=== PATIENT | female | born 1950 | race Caucasian/White ===

== ENCOUNTER 2024-01-08 10:39 | Outpatient (RCR) | payer OTHER, SELFPAY | END 2024-01-08 23:59 | disposition home or self-care (01) | LOC: RPT 10:39 | PROVIDERS: ATTENDING PHYSICIAN Obstetrics & Gynecology; FAMILY PHYSICIAN Family Medicine | DX: N39.41 Urge incontinence (principal); Z73.6 Limitation of activities due to disability | CPT/HCPCS: 97161; 97530 ==

== ENCOUNTER 2024-02-13 06:34 | Outpatient (RCR) | payer OTHER, SELFPAY | END 2024-02-13 23:59 | disposition home or self-care (01) | LOC: RPT 06:34 | PROVIDERS: ATTENDING PHYSICIAN Obstetrics & Gynecology; FAMILY PHYSICIAN Family Medicine | DX: N39.41 Urge incontinence (principal); Z73.6 Limitation of activities due to disability; R35.0 Frequency of micturition | CPT/HCPCS: 97110; 97112; 97530 ==

== ENCOUNTER → 2024-03-07 14:04 | Outpatient (REF) | payer OTHER, SELFPAY | LOC: HWRAD 14:04 | PROVIDERS: ATTENDING PHYSICIAN Internal Medicine; FAMILY PHYSICIAN Family Medicine | DX: R10.13 Epigastric pain (principal) | CPT/HCPCS: 74176 ==

== ENCOUNTER 2024-03-12 13:12 | Outpatient (RCR) | payer OTHER, SELFPAY | END 2024-03-12 23:59 | disposition home or self-care (01) | LOC: RPT 13:12 | PROVIDERS: ATTENDING PHYSICIAN Obstetrics & Gynecology; FAMILY PHYSICIAN Family Medicine | DX: N39.41 Urge incontinence (principal); Z73.6 Limitation of activities due to disability; R35.0 Frequency of micturition | CPT/HCPCS: 97110; 97112 ==

== ENCOUNTER 2024-03-24 14:25 | Outpatient (RCR) | payer OTHER, SELFPAY | END 2024-04-15 07:09 | disposition home or self-care (01) | LOC: RPT 14:25 | PROVIDERS: ATTENDING PHYSICIAN Obstetrics & Gynecology; FAMILY PHYSICIAN Family Medicine | DX: N39.41 Urge incontinence (principal); Z73.6 Limitation of activities due to disability; R35.0 Frequency of micturition | CPT/HCPCS: 97110 ==

== ENCOUNTER 2024-04-03 06:42 | Day surgery (SDC) | payer OTHER, SELFPAY ==
[2024-03-25 10:31] VITALS: BMI 39.7
[2024-03-25 10:38] LABS: Hematocrit 36.1 % (37.0-47.0); Hemoglobin 11.3 g/dL (12.0-16.0); Mean Corp Hgb Conc. 31.3 g/dL (33.0-37.0); Mean Corpuscular Hgb 25.5 pg (27.0-31.0); Mean Corpuscular Volume 81.3 fL (81.0-99.0); Mean Platelet Volume 9.6 fL (7.4-10.4); Platelet Count 245 10^3/uL (130-400); Red Blood Cell Count 4.44 10^6/uL (4.20-5.40); Red Cell Dist. Width 17.4 % (11.5-14.5); White Blood Cell Count 9.6 10^3/uL (4.8-10.8)
[2024-03-25 11:03] LABS: Blood Urea Nitrogen 10 mg/dl (7-17); Calcium 9.7 mg/dl (8.4-10.2); Carbon Dioxide 29 mmol/L (22-30); Chloride 105 mmol/L (98-107); Estimated Creatinine Clearance 106 ml/min; Glucose 117 mg/dl (70-99); Potassium 4.4 mmol/L (3.5-5.1); Sodium 144 mmol/L (135-145); eGFR > 60.00
--- NOTE | 2024-03-25 13:42 | PTCARENOTE ---
Abnormal preop EKG reviewed by Dr. Baldwin. No further action requested.
[2024-04-03] VITALS (9 sets, daily range): BP systolic 109–159; BP diastolic 67–81; BMI 39.7
[2024-04-03] MEDS: CYSVIEW KIT 100 MG INTRAVES (09:35)
[2024-04-03] MEDS: NORMOSOL-R/PLASMALYTE-A 1000 IV (09:45)
[2024-04-03 10:03] LABS: Glucose - Point of Care 94 mg/dl (70-99)
[2024-04-03 12:45] LABS: Glucose - Point of Care 102 mg/dl (70-99)
== END 2024-04-03 14:02 | disposition home or self-care (01) ==
LOC: SDS 06:42
PROVIDERS: ATTENDING PHYSICIAN Specialist; FAMILY PHYSICIAN Family Medicine; OTHER PHYSICIAN Internal Medicine Cardiovascular Disease
DX: C79.11 Secondary malignant neoplasm of bladder (principal); C50.919 Malignant neoplasm of unspecified site of unspecified female breast; N13.30 Unspecified hydronephrosis; Z17.0 Estrogen receptor positive status [ER+]
CPT/HCPCS: 52240; C9738; 88307; 88332; 36415; 80048; 82962; 85027; 88331; 88341; 88342; 88360; 93005; A9589; C2617; J1580

== ENCOUNTER 2024-04-07 22:51 | Inpatient (IN) | payer OTHER, SELFPAY ==
[2024-04-07] VITALS (14 sets, daily range): BP systolic 90–126; BP diastolic 44–65; PULSE 75–76; BMI 37.2
[2024-04-07 15:33] LABS: Hematocrit 36.3 % (37.0-47.0); Hemoglobin 11.6 g/dL (12.0-16.0); Mean Corpuscular Hgb 25.2 pg (27.0-31.0); Mean Corpuscular Volume 78.7 fL (81.0-99.0); Mean Platelet Volume 9.1 fL (7.4-10.4); Platelet Count 187 10^3/uL (130-400); Red Blood Cell Count 4.61 10^6/uL (4.20-5.40); Red Cell Dist. Width 17.2 % (11.5-14.5); White Blood Cell Count 3.8 10^3/uL (4.8-10.8)
[2024-04-07 15:34] LABS: ALT (SGPT) 26 U/L (0-35); AST (SGOT) 64 U/L (14-36); Albumin 4.2 g/dl (3.5-5.0); Alkaline Phosphatase 182 U/L (38-126); Blood Urea Nitrogen 16 mg/dl (7-17); Calcium 9.5 mg/dl (8.4-10.2); Carbon Dioxide 21 mmol/L (22-30); Chloride 105 mmol/L (98-107); Glucose 144 mg/dl (70-99); Lactic Acid 3.7 mmol/L (0.7-2.0); Potassium 3.5 mmol/L (3.5-5.1); Sodium 137 mmol/L (135-145); Total Bilirubin 1.1 mg/dl (0.2-1.3); Total Protein 7.3 g/dl (6.3-8.2); eGFR > 60.00
[2024-04-07] MEDS: NSS 1000 IV ×2 (16:33→20:25)
[2024-04-07] MEDS: MORPHINE SULFATE 4 MG IV ×2 (16:33→21:03)
[2024-04-07] MEDS: TYLENOL 1000 MG PO (16:33)
[2024-04-07 16:34] LABS: Absolute Neutrophils -Man Diff 3.1 10^3/uL (1.4-6.5); Band Neutrophils 5 % (0-3); Eosinophils 1 % (0-6); Lymphocytes 13 % (20-51); Monocytes 2 % (2-9); Normal RBC Morphology Yes; Platelets Checked Yes; Segmented Neutrophils 79 % (42-75); Total Cells Counted 100
--- NOTE | 2024-04-07 16:40 | ED.GENMED ---
History of Present Illness
General
Chief Complaint: Abdominal Symptoms
Time Seen by Provider: 04/07/24 16:10
History of Present Illness
History of Present Illness:
73-year-old female with history of bladder cancer and diabetes presenting to the emergency department for increasing pain. Patient is status post bladder mass resection and ureteral stent placement on the right side for hydronephrosis on 04/03 by
urology. Upon discharge from the hospital, has had increasing lower abdominal pain and now dysuria. Patient also with vomiting. She called her urologist, was sent medication for pain and Azo. She was also send an antibiotic, however has not
started it. Reports chills. Denies chest pain or difficulty breathing. Has had some constipation, however had a bowel movement this morning. Denies additional acute medical complaints
Past History
Past History
ED Past Medical History: Asthma, GERD, HTN, IDDM, Other (Migraines) and Other (Neck pain)
ED Past Surgical History: Cholecystectomy, Gynecological (Hysterectomy), Orthopedic (Left total knee replacement) and Other (I lift, squamous cell skin cancer removal)
Social History
Tobacco: Non-smoker
Alcohol: None
Drug: None
Living: with family
Employment: Retired
Phy Exam
Physical Exam
Physical Exam:
General: Dry mucous membranes
HEENT: protecting airway
Neck: appears supple
CV: Tachycardic, regular rhythm, no evidence of cyanosis
Resp: No accessory muscle use, no increased work of breathing, lungs clear to auscultation bilaterally
Abd: Soft and non-distended, generalized tenderness to lower abdomen without rebound or guarding
Extremities: No deformities, no swelling
Neuro: alert, no focal neurologic deficit
: deferred
Rectal: deferred
Psych: Normal affect
Skin: Intact
Sepsis
Sepsis Screening
Sepsis Assessment: Severe Sepsis
Sepsis Screening: Lactate >2mmol/L
Sepsis Screen
Sepsis Screen: Severe Sepsis
Date: 04/07/24
Time: 22:27
Course
Orders/Labs/Results
Orders:
Orders
04/07/24 15:11
Complete Blood Count/With Diff Urgent
Comprehensive Metabolic Panel Urgent
Lactic Acid Urgent
Manual Differential Urgent
Blood Culture Urgent
MASOOD Source: Blood/Venous
Specimen Description:
04/07/24 16:27
0.9% Sodium Chloride 1000 ml [Nss] 1,000 ml IV BOLUS
Acetaminophen [Tylenol] 1,000 mg PO NOW STA
Morphine Sulfate 4 mg IV NOW STA
04/07/24 16:54
Blood Culture Urgent
MASOOD Source: Blood/Venous
Specimen Description:
04/07/24 17:49
Meropenem [Merrem] 1,000 mg IV NOW STA
04/07/24 19:05
Urinalysis Reflex To Culture Urgent
Date Specimen was Collected: 04/07/24
Time Specimen was Collected: 15:02
Urine Microscopic Reflex Cult Urgent
Urine Culture Urgent
MASOOD Source: U
Specimen Description:
Date Specimen was Collected: 04/07/24
Time Specimen was Collected: 15:02
04/07/24 19:20
CT Pe/abd/pel W Urgent
Reason For Exam: lower abd pain, s/p bladder surgery 04/03, tachy
04/07/24 19:52
0.9% Sodium Chloride 1000 ml [Nss] 1,000 ml IV BOLUS
04/07/24 20:07
Lactic Acid Urgent
04/07/24 21:00
Morphine Sulfate 4 mg IV NOW STA
Abnormal Lab Results
04/07/24 04/07/24 04/07/24
15:11 19:05 20:31
WBC 3.8 L 10^3/uL
(4.8-10.8)
Hgb 11.6 L g/dL
(12.0-16.0)
Hct 36.3 L %
(37.0-47.0)
MCV 78.7 L fL
(81.0-99.0)
MCH 25.2 L pg
(27.0-31.0)
MCHC 32.0 L g/dL
(33.0-37.0)
RDW 17.2 H %
(11.5-14.5)
Segmented Neutrophils 79 H %
(42-75)
Band Neutrophils 5 H %
(0-3)
Lymphocytes (Manual) 13 L %
(20-51)
Carbon Dioxide 21 L mmol/L
(22-30)
Glucose 144 H mg/dl
(70-99)
Lactic Acid 3.7 H mmol/L
(0.7-2.0)
AST 64 H U/L
(14-36)
Alkaline Phosphatase 182 H U/L
(38-126)
Ur Occult Blood Reflex 4+ A
(Negative)
Urine Nitrite (Reflex) Positive A
(Negative)
Urine Bilirubin 2+ A
(Negative)
Urine Urobilinogen 3+ A
(Neg - 1+)
Leukocyte Esterase Rfl 1+ A
(Negative)
Urine RBC 70-80 A /HPF
(0-2)
Urine WBC (Reflex) 50-60 A /HPF
(0-5)
Urine Bacteria (Reflex) Many A
(Negative)
Urine Albumin (Reflex) 3+ A
(Neg - Trace)
POC Glucose 59 L mg/dl
(70-99)
04/07/24 15:11
04/07/24 15:11
Vital Signs
Initial and Last Documented VS:
Initial Vital Signs
Temp Pulse Resp BP Pulse Ox
100.5 F H 118 18 126/61 95
04/07/24 14:55 04/07/24 14:55 04/07/24 14:55 04/07/24 14:55 04/07/24 14:55
Last Documented Vital Signs
Temp Pulse Resp BP Pulse Ox
100.5 F H 76 18 97/60 93
04/07/24 14:55 04/07/24 21:45 04/07/24 21:45 04/07/24 21:08 04/07/24 21:45
MDM/Problems Addressed
MDM/Problems Addressed:
73-year-old female with history of bladder cancer status post tumor resection and stent placement for hydronephrosis on 04/03 presenting for lower abdominal pain. Vital signs on arrival significant for low-grade fever and tachycardia.
On exam, patient is in no acute distress, however does appear unwell. Patient with dry mucous membranes, slightly uncomfortable secondary to pain, rigors. Patient is meeting criteria for SIRS. Laboratory analysis obtained prior to my assessment,
no leukocytosis, however lactic acid is elevated. Concern for underlying infection, possible postsurgical complication versus urinary tract infection. Blood cultures added. Pending urinalysis. Will plan for CT imaging. Will start patient IV
fluids, morphine for pain, Tylenol for fever. Plan for broad-spectrum antibiotics. Patient is allergic to penicillins, cephalosporins, ciprofloxacin, Bactrim. Will start meropenem
19:30 -urine is grossly positive for urinary tract infection. Antibiotics administered. Delay in disposition pending urine, straight cath. Pending CT imaging. Family requesting CT of the chest, unclear primary source of patient's malignancy.
Will add CT PE
22:20 -patient CT shows persistent moderate right dilatation of the proximal ureter with suggestion of obstructive uropathy, as well as concern for pyelonephritis. Discussed with urology on-call, no operative intervention at this time. CT also
with concern for bony metastasis. Patient and family updated on results. Plan for admission for sepsis from urinary source.
*Critical Care Note
Total Time (30-74mins, 75-104mins- exclusive of procedures): 52
comment:
The high probability of a clinically significant, sudden or life threatening deterioration of the hemodynamic system(s)/sepsis required my full and direct attention, intervention and personal management. The aggregate critical care time was 52
minutes. This time is in addition to time spent performing reported procedures but includes the following:
[x] Data Review and interpretation
[x] Patient assessment and monitoring of vital signs
[x] Documentation
[x] Medication orders and management
ED Attending Note
-
Portions of this chart may have been created with voice recognition software.� Occasional wrong word or��sound alike� substitutions may have occurred due to the inherent limitations of voice recognition software.
Discharge Plan
Departure
Patient Disposition: Admit
Date of Disposition: 04/07/24
Time of Disposition: 22:27
Presentation/result/management discussed w/ accepting MD/DO: Hospitalist
Patient with high blood pressure during this ER visit?: No
Condition: Fair
Discharge Problem:
Acute pyelonephritis, Sepsis due to urinary tract infection
Prescriptions:
No Action
insulin degludec [Tresiba FlexTouch U-200] 200 UNIT/ML insulin pen
48 unit SQ HS
atorvastatin 10 MG tablet
10 mg PO QPM
gabapentin 100 MG capsule
100 mg PO BID
esomeprazole magnesium [Nexium] 20 MG capsule,delayed release(DR/EC)
20 mg PO DAILY
amlodipine 5 MG tablet
5 mg PO DAILY Qty: 0 0RF
hydrochlorothiazide 25 MG tablet
25 mg PO DAILY Qty: 0 0RF
montelukast [Singulair] 10 mg Tablet
10 mg PO HS
azelastine [Astelin] 137 mcg (0.1 %) Aerosol,[place]
2 spray INTRANASAL BID
coenzyme Q10 [CoQ-10] 100 mg Capsule
100 mg PO BID
colchicine 0.6 mg Tablet
0.6 mg PO DAILYPRN PRN (Reason: gout)
Fergon
1 tab PO DAILY
azelastine 0.05 % Drops
1 drp BOTH EYES BIDPRN PRN (Reason: allergy)
acetaminophen [Tylenol Ex Str Arthritis Pain] 500 mg Tablet
1,000 mg PO Q6HPRN PRN (Reason: mild pain)
ascorbic acid (vitamin C) [Vitamin C] 500 mg Tablet
500 mg PO DAILY
elderberry fruit 350 mg Capsule
350 mg PO DAILY
Women's Multivitamin Gummies
1 gummy PO DAILY
Humalog U-100 Insulin 100 unit/mL Cartridge
10 - 12 sliding scale dose SC AC
Airborne Immune Support 250-8.875 mg Tablet,Chewable
1 tab PO DAILY
Gemtesa 75 mg Tablet
75 mg PO DAILY
ProAir RespiClick 90 mcg/actuation Aerosol Powdr Breath Activated
2 inh INHALATION Q4H PRN (Reason: wheezing)
Janumet 50-1,000 mg Tablet
1 tab PO BID
trazodone 50 mg Tablet
50 mg PO HSPRN PRN (Reason: cough)
benzonatate 100 mg Capsule
100 mg PO TIDPRN PRN (Reason: cough)
ipratropium bromide 21 mcg (0.03 %) [place],Non-Aerosol
1 spray INTRANASAL BID
levocetirizine [Xyzal] 5 mg Tablet
5 mg PO DAILYPRN PRN (Reason: seasonal allergies)
Prevagen Es
1 cap PO DAILY
nateglinide [Starlix] 120 mg Tablet
120 mg PO AC
perindopril erbumine [Aceon] 4 mg Tablet
4 mg PO DAILY
phenazopyridine [Azo] 95 mg Tablet
95 mg PO TID
Trelegy Ellipta 200-62.5-25 mcg Blister With Device
1 inh INHALATION R DAILY
Referrals:
Mc Nice MD [Family Provider] -
Interventions
Interventions:
*Risk Screen - Suicide Last Done: 04/07/24 14:55
*General Assessment Last Done: 04/07/24 14:55
*Neglect/Abuse Screening Last Done: 04/07/24 14:55
DL-Bbxqwx-Tmhihyxnjn Assessment Last Done: 04/07/24 16:12
Discharge Date and Time
Print Language: WELSH
[2024-04-07] MEDS: MERREM 1000 MG IV (18:08)
[2024-04-07 19:21] LABS: Urine Albumin 3+ (Neg - Trace); Urine Bilirubin 2+ (Negative); Urine Character Slightly Cloudy (Clear); Urine Glucose Negative (Negative); Urine Ketone Negative (Negative); Urine Leukocyte 1+ (Negative); Urine Nitrite Positive (Negative); Urine Occult Blood 4+ (Negative); Urine Specific Gravity 1.015 (<1.030); Urine Urobilinogen 3+ (Neg - 1+)
[2024-04-07 20:17] LABS: Urine Red Blood Cell 70-80 /HPF (0-2)
[2024-04-07 20:18] LABS: Urine Bacteria Many (Negative); Urine White Cell 50-60 /HPF (0-5)
[2024-04-07 20:25] LABS: Lactic Acid 1.1 mmol/L (0.7-2.0)
[2024-04-07 20:33] LABS: Glucose - Point of Care 59 mg/dl (70-99)
--- NOTE | 2024-04-07 23:10 | HPS.HSE ---
Family Physician
-
Family Physician: Mc Nice
Chief Complaint
-
Lower urinary symptoms
History of Present Illness
This is a 73-year-old female who has a past medical history is significant for diabetes, hypertension, asthma and a recent diagnosis of bladder cancer who presents to the emergency department 4 days status post TURP and right-sided double-J ureteral
stent with dysuria, flank pain and low grade temps.
Patient reported that after the urological procedure (by Dr. Vuong) 4 days ago she started having increased urinary frequency. She reports lateral polyuria with increased urine output. She then later developed bilateral lower abdominal discomfort
as well as right-sided abdominal discomfort. She reports dysuria. She denies hematuria. Family and patient reports decreased p.o. intake but she has been drinking water. Chills at home but denies any fevers. Reports elevated blood glucose to
around 190. No nausea vomiting or diarrhea. No known sick contacts.
Patient had a prior history of bladder cancer with right sided hydronephrosis diagnosed in February. She underwent TURP and right ureteral double-J stent placement on April 03.
Acute emergency department temp was 100.5, blood pressure was 97/60 with a pulse of 76. She was satting 93% on room air and placed on 2 L nasal cannula. She had a white count of 3.8 with bandemia. Hemoglobin and platelet counts were normal.
Electrolytes were within normal limits. BUN/creatinine were normal. Lactate was elevated to 3.7.
She had a CT of the abdomen and pelvis showing:
Patchy linear and groundglass opacities within both lungs, slightly greater then expected on the basis of atelectasis alone. Findings raise concern for a superimposed component of pneumonitis or pulmonary edema, with pulmonary edema less likely
given the lack of pleural effusions.
Regular wall thickening involving the anterior, right lateral, and posterior wall of the bladder in this patient with reported history of recent bladder surgery. This thickening is suspicious for neoplasia.
Right ureteral stent is present. There is persistent moderate right pelvicalyceal dilation with delayed excretion of contrast, suggestive of obstructive uropathy.
Heterogeneous enhancement of the right kidney, raising the possibility of pyelonephritis.
Case d/w with urology Dr. Cochran, says no operative intervention at this time.
Medical History
Past Medical History
Past Medical History: Reports Asthma, HTN, Hypercholesterolemia and IDDM
Past Surgical History: Reports Orthopedic (Bilateral knee replacement) and Urological
Social History
Tobacco: Non-smoker
Alcohol: None
Drug: None
Personal:
Living: With Family
Employment: Retired
Family History
Family History: Not pertinent
Allergies / Home Medications
Allergies reflects when Allergies were last updated in [employer].
Home Medications with original date entered in [employer]
Allergy/Medication List:
Allergies
Allergy/AdvReac Type Severity Reaction Status Date / Time
cephalexin Allergy Unknown Hives, Verified 04/07/24 14:54
coughing
ciprofloxacin Allergy Unknown Hives, Verified 04/07/24 14:54
coughing
azithromycin Allergy swollen Verified 04/07/24 14:54
lips,
hives,
cough
bacitracin Allergy Hives, Verified 04/07/24 14:54
Redness
erythromycin base Allergy Hives, Verified 04/07/24 14:54
coughing
hydromorphone [From Dilaudid] Allergy swollen Verified 04/07/24 14:54
lips,
hives,
cough
naproxen Allergy swollen Verified 04/07/24 14:54
lips,
hives,
cough
Penicillins Allergy Hives, Verified 04/07/24 14:54
coughing
Sulfa (Sulfonamide Allergy Hives, Verified 04/07/24 14:54
Antibiotics) coughing
trimethoprim Allergy Hives, Verified 04/07/24 14:54
coughing
oxycodone [From OxyContin] AdvReac Intermediate Nausea / Verified 04/07/24 14:54
Vomiting
environmental Allergy asthma,watery Uncoded 04/03/24 09:07
eyes,sneezing,
throat
irritation
Home Medications
insulin degludec 200 unit/mL (3 mL) subcutaneous pen (Tresiba FlexTouch U-200 insulin) 48 unit SQ HS 03/27/17
atorvastatin 10 mg tablet 10 mg PO QPM 04/13/17
gabapentin 100 mg capsule 100 mg PO BID 06/11/17
esomeprazole magnesium 20 mg capsule,delayed release (Nexium) 20 mg PO DAILY 07/31/17
amlodipine 5 mg tablet 5 mg PO DAILY ##0 08/21/17
hydrochlorothiazide 25 mg tablet 25 mg PO DAILY ##0 08/21/17
azelastine 137 mcg (0.1 %) nasal spray 2 spray intranasal BID 10/20/21
coenzyme Q10 100 mg capsule (CoQ-10) 100 mg PO BID 10/20/21
montelukast 10 mg tablet (Singulair) 10 mg PO HS 10/20/21
Fergon 1 tab PO DAILY 02/21/22
Women's Multivitamin Gummies 1 gummy PO DAILY 02/21/22
acetaminophen 500 mg tablet 1,000 mg PO Q6HPRN PRN mild pain 02/21/22
ascorbic acid (vitamin C) 500 mg tablet (Vitamin C) 500 mg PO DAILY 02/21/22
azelastine 0.05 % eye drops 1 drp BOTH EYES BIDPRN PRN allergy 02/21/22
colchicine 0.6 mg tablet 0.6 mg PO DAILYPRN PRN gout 02/21/22
elderberry fruit 350 mg capsule 350 mg PO DAILY 02/21/22
albuterol sulfate 90 mcg/actuation breath activated powder inhaler (ProAir RespiClick) 2 inh inhalation Q4H PRN wheezing 03/31/24
insulin lispro 100 unit/mL subcutaneous cartridge (Humalog U-100 Insulin) 10 - 12 sliding scale dose SC AC 03/31/24
bddqpclf-blxtzcgq-csf C 250 mg-herbal no.124 8.875 mg chewable tablet (Airborne Immune Support) 1 tab PO DAILY 03/31/24
sitagliptin phosphate 50 mg-metformin 1,000 mg tablet (Janumet) 1 tab PO BID 03/31/24
vibegron 75 mg tablet (Gemtesa) 75 mg PO DAILY 03/31/24
Prevagen Es 1 cap PO DAILY 04/03/24
benzonatate 100 mg capsule 100 mg PO TIDPRN PRN cough 04/03/24
ipratropium bromide 21 mcg (0.03 %) nasal spray 1 spray intranasal BID 04/03/24
levocetirizine 5 mg tablet (Xyzal) 5 mg PO DAILYPRN PRN seasonal allergies 04/03/24
trazodone 50 mg tablet 50 mg PO HSPRN PRN cough 04/03/24
fluticasone fur. 200 mcg-umeclid 62.5 mcg-vilant 25 mcg inhalat.powder (Trelegy Ellipta) 1 inh inhalation R DAILY 04/07/24
nateglinide 120 mg tablet 120 mg PO AC 04/07/24
perindopril erbumine 4 mg tablet 4 mg PO DAILY 04/07/24
phenazopyridine 95 mg tablet 95 mg PO TID 04/07/24
Review of Systems
-
Constitutional: Reports Chills
EENT: Reports No Symptoms
Respiratory: Reports No Symptoms
Cardiac: Reports No Symptoms
Abdomen/GI: Reports Abdominal Pain
: Reports Dysuria and Flank Pain
Musculoskeletal: Reports No Symptoms
Skin: Reports No Symptoms
Neurological: Reports No Symptoms
Endocrine: Reports No Symptoms
Hematologic/Lymphatic: Reports No Symptoms
Psych: Reports No Symptoms
Physical Exam
Vital Signs
Vital Signs
Temp Pulse Resp BP Pulse Ox
100.5 F H 76 18 97/60 93
04/07/24 14:55 04/07/24 21:45 04/07/24 21:45 04/07/24 21:08 04/07/24 21:45
Physical Exam
General: Well Developed, Well Nourished and Comfortable
HEENT: NormoCephalic, Anicteric, Moist mucous membranes, Atraumatic and Oxygen
Respiratory: Clear
Cardiac: S1/S2 and Regular Rhythm
Breast: Deferred by me
GI: Soft, Non Tender, Non Distended and Normal Bowel Sounds
Rectal: Brown
Genito-urinary: Deferred by me
Musculoskeletal: No Clubbing, No Cyanosis and Edema, Right Lower Extremity (1+, chronic)
Skin: Warm
Neuro: AO x 3 and Nonfocal/grossly intact
Hematologic/Lymphatic: No Lymphadenopathy
Psych: Calm
Laboratory Results
-
04/07/24 15:11
04/07/24 15:11
Laboratory Results
Lactic Acid 1.1 mmol/L (0.7-2.0) 04/07/24 20:07
Total Bilirubin 1.1 mg/dl (0.2-1.3) 04/07/24 15:11
AST 64 U/L (14-36) H 04/07/24 15:11
ALT 26 U/L (0-35) 04/07/24 15:11
Alkaline Phosphatase 182 U/L (38-126) H 04/07/24 15:11
Data Reviewed
-
CT Scan: Report Reviewed by me
Lab Data: Labs Reviewed by me
Old Records: Reviewed
Impression/Plan
-
IMPRESSION:
73-year-old female with past medical history significant for a recent bladder cancer diagnosis with right-sided hydronephrosis status post TURB and right ureteral double-J stent on April 03 presents to the emergency department with urinary
frequency, flank pain, dysuria, elevated glucose at home and found have sepsis in ED. she was febrile, she had bandemia, blood pressure was low at 90s systolic and lactic acid was elevated at 3.7. Suspect UTI or possibly pyelonephritis as the
source of the sepsis. Patient had a CT scan which was reviewed by urology. No indication for acute urological procedure or oral stent removal at this time.
PLAN:
1. Sepsis/Hydronephrosis - UTI/pyelonephritis
- admit to telemetry
- s/p 30 ml/kg fluids in ED, lactic acid improved
- blood and urine cultures sent
- IV meropenem based on allergies and complicated uti
- continue iv fluids overnight as likely dehydrated on history as well.
- ID consultation
-Regarding hyro, renal function stable, scans reviewed by Urology and stent is appropriately placed and functional. Would consider repeat u/s or non-contrast CT in a few hours to monitor for any worsening.
- urology aware and consulted
2. Hypertension
- holding amlodipine, hctz and acei for now
- monitor until SBP > 120 before starting meds
3. DM II - on tresiba 48 and 10 -20 units ac at home with metformin and sitagliptin anteglinide
- continue nateglinide
- lantus 30 hs
- aspart 10 tidac with moderate sliding scale achs
4. Mild O2 requirement and some atelectasis or edema on CT scan. Atelectasis vs infection more likely per rad
- on meropenem
- check bnp in am
- incentive spirometry
- consider xray in am
DVT PPX - lovenox sq
Code status - full
[2024-04-07 23:50] LABS: Glucose - Point of Care 96 mg/dl (70-99)
[2024-04-08] VITALS (11 sets, daily range): BP systolic 96–124; BP diastolic 45–73; BMI 40.5
--- NOTE | 2024-04-08 02:45 | PTCARENOTE ---
Patient arrived from the ED via stretcher. Patient stood and pivoted onto the bed with assistance from staff. Accompanied by family members. AAOx3, VSS. C/o of light headedness. Pt incontinent of urine, orange in color. No complaints of any pain. No
nausea or vomiting. Pt oriented to the room. Educated on the plan of care. Call meraz is within reach.
[2024-04-08] MEDS: NSS 1000 IV (03:09)
[2024-04-08] MEDS: STERILE WATER FOR INJECTION 20 ML IV (03:26)
[2024-04-08] MEDS: MERREM 1000 MG IV (03:26)
--- NOTE | 2024-04-08 05:59 | CONS.URO ---
Addendum entered and electronically signed by Primo Cochran MD 04/08/24 06:10:
correct date of consultation is 04/08/2024
Original Note:
Consultation
-
Date/Time Consultation Performed: 04/07/24 0550
Performing Provider: Dimas
Reason for Consultation: urosepsis
Medical History
History of Present Illness
73-year-old female with bladder cancer s/p TURBT and right ureteral stenting on 04/03/[address] Vuong. She has had increasing lower abdominal pain, dysuria, vomiting. She presented to ED for evaluation.
Past Medical History
Past Medical History: None (Asthma, GERD, HTN, IDDM, Migraines, chronic Neck pain)
Past Surgical History: Other (Cholecystectomy, Hysterectomy, Left total knee replacement, 'eye lift', squamous cell skin cancer removal)
Social History
Tobacco: Non-smoker
Allergies/Home Medications
Allergies
Allergy/AdvReac Type Severity Reaction Status Date / Time
cephalexin Allergy Unknown Hives, Verified 04/07/24 14:54
coughing
ciprofloxacin Allergy Unknown Hives, Verified 04/07/24 14:54
coughing
azithromycin Allergy swollen Verified 04/07/24 14:54
lips,
hives,
cough
bacitracin Allergy Hives, Verified 04/07/24 14:54
Redness
erythromycin base Allergy Hives, Verified 04/07/24 14:54
coughing
hydromorphone [From Dilaudid] Allergy swollen Verified 04/07/24 14:54
lips,
hives,
cough
naproxen Allergy swollen Verified 04/07/24 14:54
lips,
hives,
cough
Penicillins Allergy Hives, Verified 04/07/24 14:54
coughing
Sulfa (Sulfonamide Allergy Hives, Verified 04/07/24 14:54
Antibiotics) coughing
trimethoprim Allergy Hives, Verified 04/07/24 14:54
coughing
oxycodone [From OxyContin] AdvReac Intermediate Nausea / Verified 04/07/24 14:54
Vomiting
environmental Allergy asthma,watery Uncoded 04/03/24 09:07
eyes,sneezing,
throat
irritation
Home Medications
�Medication �Instructions �Recorded �Confirmed �Type
insulin degludec 200 unit/mL (3 48 unit SQ HS 03/27/17 04/07/24 History
mL) subcutaneous pen (Tresiba
FlexTouch U-200 insulin)
atorvastatin 10 mg tablet 10 mg PO QPM 04/13/17 04/07/24 History
gabapentin 100 mg capsule 100 mg PO BID 06/11/17 04/07/24 History
esomeprazole magnesium 20 mg 20 mg PO DAILY 07/31/17 04/07/24 History
capsule,delayed release (Nexium)
amlodipine 5 mg tablet 5 mg PO DAILY ##0 08/21/17 04/07/24 Rx
hydrochlorothiazide 25 mg tablet 25 mg PO DAILY ##0 08/21/17 04/07/24 Rx
azelastine 137 mcg (0.1 %) nasal 2 spray intranasal BID 10/20/21 04/07/24 History
spray
coenzyme Q10 100 mg capsule 100 mg PO BID 10/20/21 04/07/24 History
(CoQ-10)
montelukast 10 mg tablet 10 mg PO HS 10/20/21 04/07/24 History
(Singulair)
Fergon 1 tab PO DAILY 02/21/22 04/07/24 History
Women's Multivitamin Gummies 1 gummy PO DAILY 02/21/22 04/07/24 History
acetaminophen 500 mg tablet 1,000 mg PO Q6HPRN PRN mild pain 02/21/22 04/07/24 History
ascorbic acid (vitamin C) 500 mg 500 mg PO DAILY 02/21/22 04/07/24 History
tablet (Vitamin C)
azelastine 0.05 % eye drops 1 drp BOTH EYES BIDPRN PRN allergy 02/21/22 04/07/24 History
colchicine 0.6 mg tablet 0.6 mg PO DAILYPRN PRN gout 02/21/22 04/07/24 History
elderberry fruit 350 mg capsule 350 mg PO DAILY 02/21/22 04/07/24 History
albuterol sulfate 90 mcg/actuation 2 inh inhalation Q4H PRN wheezing 03/31/24 04/07/24 History
breath activated powder inhaler
(ProAir RespiClick)
insulin lispro 100 unit/mL 10 - 12 sliding scale dose SC AC 03/31/24 04/07/24 History
subcutaneous cartridge (Humalog
U-100 Insulin)
kmseqksy-ddkbromg-vzy C 250 1 tab PO DAILY 03/31/24 04/07/24 History
mg-herbal no.124 8.875 mg
chewable tablet (Airborne Immune
Support)
sitagliptin phosphate 50 1 tab PO BID 03/31/24 04/07/24 History
mg-metformin 1,000 mg tablet
(Janumet)
vibegron 75 mg tablet (Gemtesa) 75 mg PO DAILY 03/31/24 04/07/24 History
Prevagen Es 1 cap PO DAILY 04/03/24 04/07/24 History
benzonatate 100 mg capsule 100 mg PO TIDPRN PRN cough 04/03/24 04/07/24 History
ipratropium bromide 21 mcg (0.03 1 spray intranasal BID 04/03/24 04/07/24 History
%) nasal spray
levocetirizine 5 mg tablet (Xyzal) 5 mg PO DAILYPRN PRN seasonal 04/03/24 04/07/24 History
allergies
trazodone 50 mg tablet 50 mg PO HSPRN PRN cough 04/03/24 04/07/24 History
fluticasone fur. 200 mcg-umeclid 1 inh inhalation R DAILY 04/07/24 04/07/24 History
62.5 mcg-vilant 25 mcg
inhalat.powder (Trelegy Ellipta)
nateglinide 120 mg tablet 120 mg PO AC 04/07/24 04/07/24 History
perindopril erbumine 4 mg tablet 4 mg PO DAILY 04/07/24 04/07/24 History
phenazopyridine 95 mg tablet 95 mg PO TID 04/07/24 04/07/24 History
Physical Exam
Vital Signs
Vital Signs
Temp Pulse Resp BP Pulse Ox
98.0 F 72 24 105/54 94
04/08/24 02:35 04/08/24 02:35 04/08/24 02:35 04/08/24 02:35 04/08/24 02:40
Physical Exam
adult female, asleep in bed
General: Well Developed, No Apparent Distress and Comfortable
Genito-urinary: No Costovertebral Tend
Skin: Warm
Neuro: Alert
Psych: Calm
Assessment / Plan
-
Suspected forme fruste of Urosepsis -- relief of chronically obstructed right ureter by stent insertion on 04/03 [stent is in proper position per CT]
Bladder cancer -- pathology pending
She has already stabilized significantly since presentation to ED
Data Reviewed
-
CT Scan: Image personally visualized and interpreted (chronic right hydroureteronephrosis with ureteral stent in proper position; thickened bladder wall c/w invasive urothelial carcinoma)
Lab Data: Labs Reviewed
Old Records: Reviewed
[2024-04-08] MEDS: PROTONIX 40 MG PO (06:23)
[2024-04-08] MEDS: NEURONTIN 100 MG PO ×2 (06:23→21:28)
[2024-04-08] MEDS: Pyridium 100 MG PO ×3 (06:23→21:28)
[2024-04-08] MEDS: SYMBICORT 160/4.5 MCG INHALER 2 PUFF INH ×2 (07:41→19:30)
[2024-04-08 08:00] LABS: Glucose - Point of Care 94 mg/dl (70-99)
[2024-04-08 08:42] LABS: Hematocrit 31.4 % (37.0-47.0); Hemoglobin 9.8 g/dL (12.0-16.0); Mean Corp Hgb Conc. 31.2 g/dL (33.0-37.0); Mean Corpuscular Hgb 25.3 pg (27.0-31.0); Mean Corpuscular Volume 80.9 fL (81.0-99.0); Mean Platelet Volume 9.7 fL (7.4-10.4); Platelet Count 162 10^3/uL (130-400); Red Blood Cell Count 3.88 10^6/uL (4.20-5.40); Red Cell Dist. Width 17.7 % (11.5-14.5); White Blood Cell Count 20.1 10^3/uL (4.8-10.8)
[2024-04-08] MEDS: TYLENOL 650 MG PO ×3 (09:09→23:41)
[2024-04-08] MEDS: NOVOLOG FLEXPEN 10 UNITS SC ×3 (09:10→16:31)
[2024-04-08 09:14] LABS: NT-proBNP 6300 pg/ml
[2024-04-08 09:15] LABS: Blood Urea Nitrogen 21 mg/dl (7-17); Calcium 8.2 mg/dl (8.4-10.2); Carbon Dioxide 25 mmol/L (22-30); Chloride 104 mmol/L (98-107); Estimated Creatinine Clearance 83 ml/min; Glucose 85 mg/dl (70-99); Potassium 3.7 mmol/L (3.5-5.1); Sodium 137 mmol/L (135-145); eGFR > 60.00
[2024-04-08] MEDS: NOVOLOG FLEXPEN-MODERATE RESISTANCE SC ×2 (09:15→12:29)
--- NOTE | 2024-04-08 09:59 | W.PN.HOSP.TC ---
Today's Communication/Plan
-
Continue antibiotics
Await cultures
ID consult
Right lower extremity venous Doppler ultrasound
Assessment / Plan
Assessment / Plan
Gen-AAOx3, NAD
HEENT-NC, AT, anicteric, clear oral mm
Neck-supple
CV-reg, no M, +S1/S2
Lungs-clear B/L
Abd-soft, NT, ND
Ext-RLE edema, tenderness
Musculoskeletal-no cyanosis, clubbing
Skin-warm and dry
Neuro-grossly non-focal
Psych-calm, cooperative
Sepsis due to pyelonephritis -hemodynamically stable. Continue IV antibiotics. Consult ID. Blood cultures are positive for gram-negative bacilli.
Lactic acidosis resolved.
Right lower extremity pain, edema -rule out DVT. Check Doppler ultrasound.
Bladder mass -pathology report pending, suspect underlying bladder cancer. Underwent cystoscopy and right ureteral stenting April 02. Right-sided hydronephrosis.
Microcytic anemia -appears chronic. Monitor for now.
DM2 without hyperglycemia -at home she is on insulin degludec 48 units at bedtime, Humalog insulin sliding scale, nateglinide 220 mg AC, Janumet 1 tab twice daily.
In the hospital she is getting Lantus 30 units at bedtime, NovoLog 10 units AC with sliding scale. Hold oral agents.
Essential hypertension -stable.
Hyperlipidemia -atorvastatin.
Morbid obesity due to excess calories
Full code
Updated daughter at the bedside.
Anticipated Discharge: > 48 hours
Subjective/Interval History
-
Date of Service: April 08, 2024
Patient seen and examined. Complaining of right lower extremity pain and swelling. Denies shortness of breath or cough.
Objective Data
-
Labs:
Laboratory Results
04/08/24
08:09
WBC 20.1 H
Hgb 9.8 L
Hct 31.4 L
Plt Count 162
Sodium 137
Potassium 3.7
Chloride 104
Carbon Dioxide 25
BUN 21 H
Creatinine 0.8
Glucose 85
Calcium 8.2 L
Vital Signs:
Vital Signs
Temp Pulse Resp BP Pulse Ox
98.8 F 62 16 107/54 97
04/08/24 07:24 04/08/24 07:43 04/08/24 07:43 04/08/24 07:24 04/08/24 07:43
Review of Systems
-
History Source: Patient
All other systems: Reviewed and negative
[2024-04-08 12:12] LABS: Glucose - Point of Care 145 mg/dl (70-99)
--- NOTE | 2024-04-08 12:14 | CON.ID ---
Consultation
-
Date/Time Consultation Requested: 04/08/24 2:43
Date/Time Consultation Performed: 04/08/24 12:15
Requesting Provider: Dr Whitehead
Performing Provider: Dr Ordoñez
Reason for Consultation: recent stent, urosepsis, extensive abx allergies, on iv meropenem
Chief Complaint / Past History
Chief Complaint
dysuria
History of Present Illness
Ms Castro is a 73 year old female with history of bladder cancer with mets to the bone, class III obesity, presenting here 4 days post TURB the procedure was uncomplicated, double J ureteral stent with dysuria, flank pain and low grade fevers.
Perioperatively she appears to have received gentamicin. After the procedure with urinary frequency, polyuria without hematuria. + Flank tenderness. Poor oral intake. + chills no fevers. No nausea, vomiting or diarrhea.
'I come from a long line of people with numerous allergies.' States that all allergies are hives and throat tightness
On arrival T 100.5 - no subsequent fevers thus far, BP is stable, wbc initially 3.8 now 20, hgb 9.8, plt 162, L shift present on arrival, cr 0.8, lactic acid 1.1, probnp 6000, ua 70-80 rbcs, 50-60 wbcs, many bacteria, 04/07 CT a/p thickened bladder,
right ureteral stent, bony metastatic disease, blood cultures x2 E coli without apparent resistance, urine culture is pending, she has received a dose of meropenem thus far. Flank tenderness has resolved
Past History
Additional Past Medical History:
Asthma, HTN, Hypercholesterolemia and IDDM
Additional Past Surgical History:
Bilateral knee replacement) and Urological
Allergy History:
cephalexin Allergy (Unknown, Verified 04/07/24 14:54)
Hives, coughing
ciprofloxacin Allergy (Unknown, Verified 04/07/24 14:54)
Hives, coughing
azithromycin Allergy (Verified 04/07/24 14:54)
swollen lips, hives, cough
bacitracin Allergy (Verified 04/07/24 14:54)
Hives, Redness
erythromycin base Allergy (Verified 04/07/24 14:54)
Hives, coughing
hydromorphone [From Dilaudid] Allergy (Verified 04/07/24 14:54)
swollen lips, hives, cough
naproxen Allergy (Verified 04/07/24 14:54)
swollen lips, hives, cough
Penicillins Allergy (Verified 04/07/24 14:54)
Hives, coughing
Sulfa (Sulfonamide Antibiotics) Allergy (Verified 04/07/24 14:54)
Hives, coughing
trimethoprim Allergy (Verified 04/07/24 14:54)
Hives, coughing
oxycodone [From OxyContin] Adverse Reaction (Intermediate, Verified 04/07/24 14:54)
Nausea / Vomiting
environmental Allergy (Uncoded 04/03/24 09:07)
asthma,watery eyes,sneezing, throat irritation
Medications Reviewed: Yes
Social History
Tobacco: Non-Smoker
Alcohol: None
Drug: None
Family History
Family History: Not Pertinent
Review of Systems
Review of Systems
General: Fever; Negative Chills
All systems: All other systems were reviewed and were negative
Vital Signs
Temp Pulse Resp BP Pulse Ox
98.8 F 62 16 107/54 97
04/08/24 07:24 04/08/24 07:43 04/08/24 07:43 04/08/24 07:24 04/08/24 07:43
Physical Exam
Physical Exam
Constitutional: No Acute Distress and Chronically Ill
Cardiovascular: Regular Rate and S1/S2; Negative Murmur or Rub
Pulmonary: Clear and Symmetric; Negative Wheezes, Rales or Rhonchi
Gastrointestinal: Soft, Non Tender, Non Distended and Normal Bowel Sounds
Genito-Urinary: Negative Suprapubic Tenderness or CVA Tenderness
Skin: Warm and Dry; Negative Rash or Jaundice
Lab / Diagnostic Study Results
04/08/24 08:09
04/08/24 08:09
Total Counted 100 04/07/24 15:11
Abs Neuts (Manual) 3.1 10^3/uL (1.4-6.5) 04/07/24 15:11
Segmented Neutrophils 79 % (42-75) H 04/07/24 15:11
Band Neutrophils 5 % (0-3) H 04/07/24 15:11
Lymphocytes (Manual) 13 % (20-51) L 04/07/24 15:11
Eosinophils (Manual) 1 % (0-6) 04/07/24 15:11
Lactic Acid 1.1 mmol/L (0.7-2.0) 04/07/24 20:07
Ur Squamous Epith Cells 6-10 /LPF (Few) 04/07/24 19:05
Microbiology Results
Micro:
04/07/24 15:11 Blood Culture - Preliminary
Blood/Venous Escherichia coli
Gram Stain - Preliminary
04/07/24 16:54 Blood Culture - Preliminary
Blood/Venous Positive culture in progress
Gram Stain - Preliminary
04/07/24 19:05 Urine Culture - Pending
Urine
Assessment / Plan
Probale E coli UTI
E coli Bacteremia
TURB and stent placement 04/03
Report of allergy (hives and cough) to most classes of antibiotics
- preliminary report not suggestive of carriage of resistance
- awaiting final sensitives
- trial of cefazolin - it has a unique side chain is and often tolerated even by patients with allergy to penicillin or cephalexin
[2024-04-08] MEDS: MERREM IV (13:29)
[2024-04-08] MEDS: STERILE WATER FOR INJECTION IV (13:29)
[2024-04-08] MEDS: ANCEF 10 IV ×2 (14:43→21:28)
[2024-04-08 16:26] LABS: Glucose - Point of Care 171 mg/dl (70-99)
[2024-04-08 16:27] LABS: Hematocrit 33.2 % (37.0-47.0); Hemoglobin 10.1 g/dL (12.0-16.0); Mean Corp Hgb Conc. 30.4 g/dL (33.0-37.0); Mean Corpuscular Hgb 24.5 pg (27.0-31.0); Mean Corpuscular Volume 80.6 fL (81.0-99.0); Mean Platelet Volume 9.6 fL (7.4-10.4); Platelet Count 176 10^3/uL (130-400); Red Blood Cell Count 4.12 10^6/uL (4.20-5.40); Red Cell Dist. Width 17.9 % (11.5-14.5); White Blood Cell Count 18.9 10^3/uL (4.8-10.8)
[2024-04-08] MEDS: NOVOLOG FLEXPEN-MODERATE RESISTANCE 1 UNITS SC (16:31)
[2024-04-08] MEDS: LIPITOR 10 MG PO (17:05)
[2024-04-08] MEDS: SENOKOT-S 1 TABLET PO (17:09)
[2024-04-08] MEDS: HEPARIN 9700 UNITS IV (17:09)
[2024-04-08] MEDS: HEPARIN 25000 UNITS/250 ML IV (17:11)
[2024-04-08 21:24] LABS: Glucose - Point of Care 142 mg/dl (70-99)
[2024-04-08] MEDS: SINGULAIR 10 MG PO (21:28)
[2024-04-08] MEDS: LANTUS 0.3 UNITS SC (21:28)
[2024-04-09 00:12] LABS: APTT > 200 Sec (23.4-35.0)
[2024-04-09 03:54] VITALS: BP 119/54
[2024-04-09] MEDS: ANCEF 10 IV ×3 (05:34→21:14)
[2024-04-09 07:30] VITALS: BP 135/71
[2024-04-09] MEDS: SYMBICORT 160/4.5 MCG INHALER 2 PUFF INH ×2 (08:12→21:15)
[2024-04-09 08:37] LABS: % Basophils 0.3 % (0-2); % Eosinophils 1.6 % (0-6); % Immature Granulocytes 0.8 % (0-0.5); % Lymphocytes 13.4 % (20.5-51.1); % Monocytes 6.2 % (1.7-9.3); % Neutrophils 77.7 % (42.2-75.2); Absolute Basophils 0.1 10^3/uL (0-0.2); Absolute Eosinophils 0.3 10^3/uL (0-0.7); Absolute Immature Granulocytes 0.1 10^3/uL (0-0.05); Absolute Lymphocytes 2.2 10^3/uL (1.2-3.4); Absolute Neutrophils 12.9 10^3/uL (1.4-6.5); Hematocrit 32.3 % (37.0-47.0); Mean Corpuscular Volume 80.8 fL (81.0-99.0); Mean Platelet Volume 9.9 fL (7.4-10.4); Nucleated Red Blood Cells % 0 %; Platelet Count 179 10^3/uL (130-400); White Blood Cell Count 16.6 10^3/uL (4.8-10.8)
--- NOTE | 2024-04-09 08:53 | W.PN.URO.CBU ---
Today's Communication / Plan
-
no gu interventio at prsent
Assessment / Plan
-
pt improving wbc down afebrile continue present iv abs regimen await full cxs
Diagnosis
-
Date of Service: April 09, 2024
-
Patient Diagnosis:pyelonephritis in pt with jj stent and bladder cancer with obstructed ureter
Post Op Day:
Subjective
-
feeling better
Objective
-
Vital Signs
Temp Pulse Resp BP Pulse Ox
98.2 F 63 16 119/54 97
04/09/24 03:54 04/09/24 08:15 04/09/24 08:15 04/09/24 03:54 04/09/24 08:15
Intake and Output
04/08/24 04/09/24 04/10/24
06:59 06:59 06:59
Intake Total 840 / 840
Balance 840 / 840
Intake:
Oral fluids 840 / 840
Other:
Number of approximated MODERATE 2
amounts of urine
Number of approximated LARGE 3
amounts of urine
How many times incontinent 1 4
MODERATE amount urine
How many times incontinent 1
SATURATED amount urine
Laboratory Results
04/09/24 08:24
04/08/24 08:09
Review of Systems
-
: Frequency, Flank Pain and Urgency
Physical Exam
-
General - well developed, well nourished, no acute distress
Chest - clear bilaterally
Abdomen - soft, non-tender, positive bowel sounds, no CVAT, no incisional pain or distention
Genitalia - normal
Rectal - normal
Skin - warm & dry with no rash
Neuro - AOx3, no motor deficits
Extremities - no clubbing, no cyanosis, no edema
Incision - clean, dry
Dressing - clean, dry, intact
Care Review
Data Reviewed
Discussed with: Hospitalist and Nursing
CT Scan: Image Pers Reviewed
[2024-04-09 09:00] LABS: APTT 124.5 Sec (23.4-35.0)
--- NOTE | 2024-04-09 09:00 | W.PN.HOSP.TC ---
Today's Communication/Plan
-
Convert heparin to Eliquis
Continue antibiotics
Assessment / Plan
Assessment / Plan
Gen-AAOx3, NAD
HEENT-NC, AT, anicteric, clear oral mm
Neck-supple
CV-reg, no M, +S1/S2
Lungs-clear B/L
Abd-soft, NT, ND
Ext-RLE edema, tenderness
Musculoskeletal-no cyanosis, clubbing
Skin-warm and dry
Neuro-grossly non-focal
Psych-calm, cooperative
E. coli sepsis due to pyelonephritis -hemodynamically stable. Continue IV antibiotics. Appreciate ID input. Awaiting culture sensitivity. WBCs trending down. Afebrile.
Acute right lower extremity occlusive DVT -noted on ultrasound, involving right posterior tibial, peroneal, popliteal veins. Convert IV heparin to Eliquis today. Suspect malignancy induced thrombosis. Patient denies pain with ambulation.
Informed patient of symptoms to watch out for for pulmonary embolism, such as chest pain or shortness of breath.
Bladder mass -pathology report pending, suspect underlying bladder cancer. Underwent cystoscopy and right ureteral stenting April 02. Right-sided hydronephrosis.
Microcytic anemia -appears chronic. Monitor for now.
DM2 without hyperglycemia -at home she is on insulin degludec 48 units at bedtime, Humalog insulin sliding scale, nateglinide 220 mg AC, Janumet 1 tab twice daily.
In the hospital she is getting Lantus 30 units at bedtime, NovoLog 10 units AC with sliding scale. Hold oral agents.
Essential hypertension -stable.
Hyperlipidemia -atorvastatin.
Morbid obesity due to excess calories
Full code
Dispo -likely discharge in the next 24 hours if stable once culture sensitivity resulted.
Anticipated Discharge: Within 24 hours
Subjective/Interval History
-
Date of Service: April 09, 2024
Patient seen and examined. No complaints.
Objective Data
-
Labs:
Laboratory Results
04/08/24 04/09/24
23:35 08:24
WBC 16.6 H
Hgb 10.0 L
Hct 32.3 L
Plt Count 179
APTT > 200 H* Pending
Vital Signs:
Vital Signs
Temp Pulse Resp BP Pulse Ox
98.2 F 63 16 135/71 97
04/09/24 07:30 04/09/24 08:15 04/09/24 08:15 04/09/24 07:30 04/09/24 08:15
I&O
04/08/24 04/09/24 04/10/24
06:59 06:59 06:59
Intake Total 840 / 840
Balance 840 / 840
Review of Systems
-
History Source: Patient
All other systems: Reviewed and negative
[2024-04-09 09:09] LABS: Glucose - Point of Care 123 mg/dl (70-99)
[2024-04-09] MEDS: Pyridium 100 MG PO ×3 (09:16→21:14)
[2024-04-09] MEDS: NOVOLOG FLEXPEN 10 UNITS SC ×3 (09:16→17:22)
[2024-04-09] MEDS: PROTONIX 40 MG PO (09:16)
[2024-04-09] MEDS: NOVOLOG FLEXPEN-MODERATE RESISTANCE SC ×2 (09:16→14:03)
[2024-04-09] MEDS: NEURONTIN 100 MG PO ×2 (09:16→21:14)
[2024-04-09] MEDS: FLUSH (NSS) 1 FLUSH IV (09:17)
[2024-04-09] MEDS: ELIQUIS 10 MG PO ×2 (09:17→21:14)
[2024-04-09] MEDS: SENOKOT-S 1 TABLET PO (09:17)
[2024-04-09] MEDS: TESSALON PERLES 100 MG PO ×2 (09:17→21:18)
--- NOTE | 2024-04-09 09:17 | PTCARENOTE ---
Stopped IV Heparin at this time per orders, starting Eliquis. Educated pt on Eliquis.
[2024-04-09 11:15] VITALS: BP 132/68
[2024-04-09 11:55] LABS: Glucose - Point of Care 179 mg/dl (70-99)
--- NOTE | 2024-04-09 12:52 | W.PN.ID1 ---
Date of Service
Date of Service: April 09, 2024
Today's Communication
Continue antibiotics.
Assessment / Plan
E. coli UTI
E coli Bacteremia
TURB and stent placement 04/03
Report of allergy (hives and cough) to most classes of antibiotics
Recommendations:
Continue with cefazolin as patient is tolerating, and isolate is susceptible based upon MASOOD's
Monitor white count and temperature curve
Chief Complaint
-: UTI
Subjective / Review of Systems
Patient seen and examined. Reports no issues with antibiotics thus far.
Review of Systems: No Fever and No Chills
Vital Signs / Physical Exam
Vital Signs
Vital Signs
Temp Pulse Resp BP Pulse Ox
97.7 F 95 20 132/68 96
04/09/24 11:15 04/09/24 11:15 04/09/24 11:15 04/09/24 11:15 04/09/24 11:15
Physical Exam
Constitutional: No Acute Distress, Comfortable and Non-toxic
Eyes: Sclera Anicteric
Pulmonary: Non Labored
Gastrointestinal: Non Distended
Extremities: Negative Erythema
Skin: Negative Rash
Neurological: Awake and Alert
Psychological: Calm
Objective Data
Lab Data
Lab Results
04/09/24 08:24
04/08/24 08:09
APTT 124.5 Sec (23.4-35.0) H 04/09/24 08:24
Estimated Creat Clear 83 ml/min 04/08/24 08:09
Lactic Acid 1.1 mmol/L (0.7-2.0) 04/07/24 20:07
Total Bilirubin 1.1 mg/dl (0.2-1.3) 04/07/24 15:11
AST 64 U/L (14-36) H 04/07/24 15:11
ALT 26 U/L (0-35) 04/07/24 15:11
Alkaline Phosphatase 182 U/L (38-126) H 04/07/24 15:11
Most recent labs reviewed.
Micro Results:
04/07/24 16:54 Blood Culture - Preliminary
Blood/Venous Escherichia coli
Gram Stain - Preliminary
04/07/24 15:11 Blood Culture - Preliminary
Blood/Venous Escherichia coli
Gram Stain - Preliminary
04/07/24 19:05 Urine Culture - Final
Urine Escherichia coli
[2024-04-09 13:37] LABS: Glucose - Point of Care 92 mg/dl (70-99)
[2024-04-09] MEDS: TYLENOL 650 MG PO (14:02)
--- NOTE | 2024-04-09 14:40 | PTCARENOTE ---
Addendum entered by Keyonna Wood 04/09/24 16:56:
Bladder scanned pt at 1530 after an unmeasurable void due to pt feeling like she does not completely empty bladder. Discussed with pt that it may be due to UTI. Bladder scanned pt for a PVR of 51.
Original Note:
Pt complaining of more burning on urination and that she has hematuria (new), large amount. RN did not see hematuria. Provided collection container for RN to see urine with next void. Made Dr. Greenberg aware of hematuria, ordered urinalysis. Provided
update to pt of need for UA, will monitor.
--- NOTE | 2024-04-09 15:07 | CM ---
Chart reviewed. Patient is here for UTI/pyelonephritis. She recently just had a bladder procedure done. Her and both live at [facility]. They both drive. She is independent. Does not own any DME. Her will provide transportation
once she is discharged from the hospital. She has an active PCP and pharmacy. She is retired. 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 She denies any +SDOHs.
DISCHARGE PLAN: Discharge home to [facility] with and assistance from SN. Her will provide transportation.
Daughter asked if patient could have a script for SN. She would like her BG, B/P and med management checked. This note was also places in sticky note via [facility].
[2024-04-09 15:40] VITALS: BP 144/68
[2024-04-09 16:00] LABS: Urine Albumin 3+ (Neg - Trace); Urine Bilirubin 1+ (Negative); Urine Character Very Cloudy (Clear); Urine Color Amber; Urine Glucose Negative (Negative); Urine Ketone Negative (Negative); Urine Leukocyte Trace (Negative); Urine Nitrite Positive (Negative); Urine Occult Blood 4+ (Negative); Urine Specific Gravity 1.015 (<1.030); Urine Urobilinogen 1+ (Neg - 1+); Urine pH 6.5 (5.0-9.0)
[2024-04-09 16:09] LABS: Urine Red Blood Cell >100 /HPF (0-2)
[2024-04-09 16:52] LABS: Glucose - Point of Care 180 mg/dl (70-99)
[2024-04-09] MEDS: LIPITOR 10 MG PO (17:19)
[2024-04-09] MEDS: NOVOLOG FLEXPEN-MODERATE RESISTANCE 1 UNITS SC (17:22)
[2024-04-09] MEDS: DESENEX/MITRAZOL/ZEASORB 1 APPLIC TOPICAL (17:59)
[2024-04-09 21:14] LABS: Glucose - Point of Care 165 mg/dl (70-99)
[2024-04-09] MEDS: SINGULAIR 10 MG PO (21:14)
[2024-04-09] MEDS: LANTUS 0.3 UNITS SC (21:30)
[2024-04-09 23:59] VITALS: BP 141/69
[2024-04-10] MEDS: ANCEF 10 IV (05:40)
[2024-04-10] MEDS: TESSALON PERLES 100 MG PO ×2 (05:51→16:34)
[2024-04-10 07:30] VITALS: BP 131/94
[2024-04-10] MEDS: SYMBICORT 160/4.5 MCG INHALER 2 PUFF INH ×2 (08:03→20:43)
[2024-04-10 08:13] LABS: Glucose - Point of Care 124 mg/dl (70-99)
--- NOTE | 2024-04-10 09:01 | W.PN.HOSP.TC ---
Today's Communication/Plan
-
Stop Eliquis
IR consult
CBC
Assessment / Plan
Assessment / Plan
Gen-AAOx3, NAD
HEENT-NC, AT, anicteric, clear oral mm
Neck-supple
CV-reg, no M, +S1/S2
Lungs-clear B/L
Abd-soft, NT, ND
Ext-RLE edema, tenderness
Musculoskeletal-no cyanosis, clubbing
Skin-warm and dry
Neuro-grossly non-focal
Psych-calm, cooperative
Gross hematuria -suspect due to underlying bladder cancer and/or stent in the setting of anticoagulation with Eliquis. Stop further Eliquis. Long discussion with patient regarding risks versus benefits of anticoagulation versus IVC filter
placement. I spoke with urology Dr. Nj as well. Overall consensus is to pursue an IVC filter and stop anticoagulation given high risk for ongoing bleeding in light of underlying bladder cancer and anticoagulation.
Patient agreeable to IVC filter placement and stopping further anticoagulation. IR consulted.
E. coli sepsis due to pyelonephritis -hemodynamically stable. Continue IV antibiotics. Appreciate ID input. Awaiting culture sensitivity. WBCs trending down. Afebrile.
Acute right lower extremity occlusive DVT -noted on ultrasound, involving right posterior tibial, peroneal, popliteal veins. Hold further anticoagulation in light of gross hematuria. Proceed with IVC filter placement.
Bladder mass -pathology report pending, suspect underlying bladder cancer. Underwent cystoscopy and right ureteral stenting April 02. Right-sided hydronephrosis. Urology recommends not removing ureteral stent.
Microcytic anemia -appears chronic. Monitor for now. CBC pending for today.
DM2 without hyperglycemia -at home she is on insulin degludec 48 units at bedtime, Humalog insulin sliding scale, nateglinide 220 mg AC, Janumet 1 tab twice daily.
In the hospital she is getting Lantus 30 units at bedtime, NovoLog 10 units AC with sliding scale. Hold oral agents. Glucose 124 this morning.
Essential hypertension -stable.
Hyperlipidemia -atorvastatin.
Morbid obesity due to excess calories
Full code
Dispo -anticipate discharge after IVC filter placement if stable. Will need antibiotics on discharge.
Anticipated Discharge: Within 24 hours
Subjective/Interval History
-
Date of Service: April 10, 2024
Patient seen and examined. Still with hematuria. Denies pain.
Objective Data
-
Labs:
Laboratory Results
04/10/24
06:00
WBC Pending
Hgb Pending
Hct Pending
Plt Count Pending
Vital Signs:
Vital Signs
Temp Pulse Resp BP Pulse Ox
98.3 F 74 16 131/94 97
04/10/24 07:30 04/10/24 08:12 04/10/24 08:12 04/10/24 07:30 04/10/24 08:12
I&O
04/09/24 04/10/24 04/11/24
06:59 06:59 06:59
Intake Total 840 / 840 480 / 480
Output Total 450 / 450
Balance 840 / 840
Review of Systems
-
History Source: Patient
All other systems: Reviewed and negative
[2024-04-10] MEDS: NOVOLOG FLEXPEN-MODERATE RESISTANCE SC (09:07)
[2024-04-10] MEDS: DESENEX/MITRAZOL/ZEASORB 1 APPLIC TOPICAL (09:12)
[2024-04-10] MEDS: NOVOLOG FLEXPEN 10 UNITS SC ×3 (09:17→18:07)
[2024-04-10] MEDS: PROTONIX 40 MG PO (09:18)
[2024-04-10] MEDS: NEURONTIN 100 MG PO ×2 (09:18→20:54)
[2024-04-10] MEDS: Pyridium 100 MG PO ×3 (09:18→21:00)
[2024-04-10] MEDS: ELIQUIS PO (09:19)
--- NOTE | 2024-04-10 09:23 | W.PN.ID1 ---
Date of Service
Date of Service: April 10, 2024
Today's Communication
trial of cefdinir today - which she is tolerating could dc with plan to complete a 14 day total course 04/07-04/20
- preemptive treatment of xerosis with lotion to prevent confusion if she develops itching from that; she is agreeable
- family asking about repeat CT scan to reassess moderate right pelvicalyceal dilation; defer to urology
Assessment / Plan
E coli UTI
E coli Bacteremia
TURB and stent placement 04/03
Report of allergy (hives and cough) to most classes of antibiotics
Xerosis
- trial of cefdinir today - which she is tolerating could dc with plan to complete a 14 day total course
- preemptive treatment of xerosis with lotion to prevent confusion if she develops itching from that; she is agreeable
- family asking about repeat CT scan to reassess moderate right pelvicalyceal dilation; defer to urology
Chief Complaint
-: UTI
Subjective / Review of Systems
afebrile
bp stable
tolerating cefdinir
Vital Signs / Physical Exam
Vital Signs
Vital Signs
Temp Pulse Resp BP Pulse Ox
98.3 F 74 16 131/94 93
04/10/24 07:30 04/10/24 08:12 04/10/24 08:12 04/10/24 07:30 04/10/24 09:04
Physical Exam
Constitutional: No Acute Distress
Cardiovascular: Regular Rate and S1/S2; Negative Murmur or Rub
Pulmonary: Clear and Symmetric; Negative Wheezes or Rales
Gastrointestinal: Soft, Non Tender, Non Distended and Normal Bowel Sounds
Genito-Urinary: Negative Suprapubic Tenderness or CVA Tenderness
Skin: Warm and Dry; Negative Rash or Jaundice
Objective Data
Lab Data
Lab Results
04/08/24 08:09
APTT Cancelled 04/09/24 14:45
Estimated Creat Clear 83 ml/min 04/08/24 08:09
Lactic Acid 1.1 mmol/L (0.7-2.0) 04/07/24 20:07
Total Bilirubin 1.1 mg/dl (0.2-1.3) 04/07/24 15:11
AST 64 U/L (14-36) H 04/07/24 15:11
ALT 26 U/L (0-35) 04/07/24 15:11
Alkaline Phosphatase 182 U/L (38-126) H 04/07/24 15:11
Most recent labs reviewed.
Urine Culture Final 04/09/24-32
CC: Greater than 100,000 CFU/ML Escherichia coli
Organism 1 Escherichia coli
1. Escherichia coli
M.I.C. RX
--------- ---
Amoxicillin/Potas. Clavulanate <=8/4 S
Ampicillin >16 R
Ampicillin/Sulbactam 16/8 I
Aztreonam <=4 S
Cefazolin 4 I
Cefazolin interpretations for E. coli, K. pneumo and
P. mirabilis for uncomplicated uti are as follows:
<=16 Susceptible
> 16 Resistant
Cefepime <=2 S
Ceftazidime <=1 S
Ceftriaxone <=1 S
Ertapenem <=0.5 S
Ciprofloxacin <=0.25 S
Gentamicin <=2 S
Meropenem <=1 S
Nitrofurantoin-Urine Only 64 I
Piperacillin/Tazobactam <=8 S
Tetracycline >8 R
Tobramycin <=2 S
Trimethoprim/Sulfamethoxazole <=2/38 S
Micro Results:
04/07/24 16:54 Blood Culture - Preliminary
Blood/Venous Escherichia coli
Gram Stain - Preliminary
04/07/24 15:11 Blood Culture - Final
Blood/Venous Escherichia coli
Gram Stain - Final
04/07/24 19:05 Urine Culture - Final
Urine Escherichia coli
[2024-04-10 09:45] LABS: % Basophils 0.4 % (0-2); % Eosinophils 2.4 % (0-6); % Immature Granulocytes 0.9 % (0-0.5); % Lymphocytes 19.4 % (20.5-51.1); % Monocytes 6.3 % (1.7-9.3); % Neutrophils 70.6 % (42.2-75.2); Absolute Eosinophils 0.2 10^3/uL (0-0.7); Absolute Immature Granulocytes 0.1 10^3/uL (0-0.05); Absolute Lymphocytes 1.8 10^3/uL (1.2-3.4); Absolute Monocytes 0.6 10^3/uL (0.1-0.6); Absolute Neutrophils 6.5 10^3/uL (1.4-6.5); Hemoglobin 10.6 g/dL (12.0-16.0); Mean Corp Hgb Conc. 31.2 g/dL (33.0-37.0); Mean Corpuscular Hgb 25.1 pg (27.0-31.0); Mean Corpuscular Volume 80.4 fL (81.0-99.0); Mean Platelet Volume 9.5 fL (7.4-10.4); Nucleated Red Blood Cells % 0 %; Platelet Count 198 10^3/uL (130-400); Red Blood Cell Count 4.23 10^6/uL (4.20-5.40); Red Cell Dist. Width 17.9 % (11.5-14.5); White Blood Cell Count 9.2 10^3/uL (4.8-10.8)
[2024-04-10] MEDS: OMNICEF 300 MG PO ×2 (09:45→20:53)
--- NOTE | 2024-04-10 10:48 | W.PN.URO.CBU ---
Today's Communication / Plan
-
saul filter irad
Assessment / Plan
-
pt improving wbc down afebrile continue present iv abs regimen await full cxs decided to hold eliquis and proceed with filter Still a isk of bleeding from cancer and stent but much less chance
Diagnosis
-
Date of Service: April 10, 2024
-
Patient Diagnosis:
Post Op Day:
Patient Diagnosis:pyelonephritis in pt with jj stent and bladder cancer with obstructed ureter now hematuria in eliquis with a stent and bladder cancer
Post Op Day:
Subjective
-
stable but new onset hematuria
Objective
-
Vital Signs
Temp Pulse Resp BP Pulse Ox
98.3 F 74 16 131/94 93
04/10/24 07:30 04/10/24 08:12 04/10/24 08:12 04/10/24 07:30 04/10/24 09:04
Intake and Output
04/09/24 04/10/24 04/11/24
06:59 06:59 06:59
Intake Total 840 / 840 480 / 480
Output Total 450 / 450
Balance 840 / 840 30 / 30
Intake:
Oral fluids 840 / 840 480 / 480
Output:
Urine, Voided 450 / 450
Other:
Number of approximated MODERATE 2 3
amounts of urine
Number of approximated LARGE 3
amounts of urine
How many times incontinent 4
MODERATE amount urine
Laboratory Results
04/10/24 09:30
04/08/24 08:09
Review of Systems
-
: Bleeding
Physical Exam
-
General - well developed, well nourished, no acute distress
Chest - clear bilaterally
Abdomen - soft, non-tender, positive bowel sounds, no CVAT, no incisional pain or distention
Genitalia - normal
Rectal - normal
Skin - warm & dry with no rash
Neuro - AOx3, no motor deficits
Extremities - no clubbing, no cyanosis, no edema
Incision - clean, dry
Dressing - clean, dry, intact
Care Review
Data Reviewed
Discussed with: Hospitalist
CT Scan: Image Pers Reviewed
[2024-04-10 11:46] LABS: Glucose - Point of Care 156 mg/dl (70-99)
[2024-04-10] MEDS: NOVOLOG FLEXPEN-MODERATE RESISTANCE 1 UNITS SC ×2 (12:50→18:06)
[2024-04-10 13:15] VITALS: BP 140/66; BP_SYST 60
[2024-04-10 14:18] VITALS: BP 137/69; BP_SYST 60
--- NOTE | 2024-04-10 14:52 | PTCARENOTE ---
Pt returned from IR via stretcher s/p IVC filter placement. Pt AAO x3, RODRIGUEZ well, transferred to bed with assist x1/walker, no c/o weakness/dizziness. Rt ant neck dsg with scanty amts serosanguinous drainage, no bruising/edema noted. Pt denies
discomfort at site. Currently resting in chair, no c/o. Will continue to monitor.
[2024-04-10 15:25] VITALS: BP 169/89
--- NOTE | 2024-04-10 15:38 | PTCARENOTE ---
Pt AAO x3, RODRIGUEZ well,OOB in chair for most of shift, ambulatory to BR with minimal assistance/walker, keyshawn well. VSS. On room air- pulse ox 97%, no SOB noted. Abd obese, soft, keyshawn PO well. Pt had small amtsoft.formed BM in BR; C dif sent: (-). Pt
with (+) hematuria; also on Pyridium. No clots noted pt occ c/o 'burning' with urination. Rt ant nec dsg D/I. No c/o at present. Will continue to monitor..
[2024-04-10 16:54] LABS: Glucose - Point of Care 156 mg/dl (70-99)
[2024-04-10] MEDS: TYLENOL 650 MG PO (18:06)
[2024-04-10] MEDS: LIPITOR 10 MG PO (18:06)
[2024-04-10] MEDS: SINGULAIR 10 MG PO (20:58)
[2024-04-10 21:21] LABS: Glucose - Point of Care 97 mg/dl (70-99)
[2024-04-10] MEDS: LANTUS 0.15 UNITS SC (22:18)
[2024-04-10 23:23] VITALS: BP 146/65
[2024-04-11] MEDS: TESSALON PERLES 100 MG PO (03:08)
[2024-04-11] MEDS: TYLENOL 650 MG PO (03:08)
[2024-04-11 08:18] LABS: Glucose - Point of Care 115 mg/dl (70-99)
[2024-04-11] MEDS: NOVOLOG FLEXPEN-MODERATE RESISTANCE SC (08:26)
[2024-04-11] MEDS: NOVOLOG FLEXPEN 10 UNITS SC (08:27)
[2024-04-11] MEDS: NEURONTIN 100 MG PO (08:28)
[2024-04-11] MEDS: OMNICEF 300 MG PO (08:28)
[2024-04-11] MEDS: Pyridium 100 MG PO (08:29)
[2024-04-11] MEDS: PROTONIX 40 MG PO (08:29)
[2024-04-11] MEDS: SYMBICORT 160/4.5 MCG INHALER 2 PUFF INH (09:36)
[2024-04-11 09:40] LABS: % Basophils 0.7 % (0-2); % Eosinophils 3.2 % (0-6); % Immature Granulocytes 0.5 % (0-0.5); % Lymphocytes 26.6 % (20.5-51.1); % Monocytes 8.2 % (1.7-9.3); % Neutrophils 60.8 % (42.2-75.2); Absolute Basophils 0.1 10^3/uL (0-0.2); Absolute Eosinophils 0.3 10^3/uL (0-0.7); Absolute Lymphocytes 2.3 10^3/uL (1.2-3.4); Absolute Monocytes 0.7 10^3/uL (0.1-0.6); Absolute Neutrophils 5.2 10^3/uL (1.4-6.5); Hematocrit 33.5 % (37.0-47.0); Hemoglobin 10.6 g/dL (12.0-16.0); Mean Corp Hgb Conc. 31.6 g/dL (33.0-37.0); Mean Corpuscular Hgb 24.9 pg (27.0-31.0); Mean Corpuscular Volume 78.8 fL (81.0-99.0); Nucleated Red Blood Cells % 0 %; Platelet Count 220 10^3/uL (130-400); Red Blood Cell Count 4.25 10^6/uL (4.20-5.40); Red Cell Dist. Width 17.6 % (11.5-14.5); White Blood Cell Count 8.5 10^3/uL (4.8-10.8)
--- NOTE | 2024-04-11 09:44 | W.PN.URO.CBU ---
Today's Communication / Plan
-
no gu interventions
Assessment / Plan
-
pt improving wbc down afebrile continue present antibiotics howme when sa=ytable top see heme onc
Diagnosis
-
Date of Service: April 11, 2024
-
Patient Diagnosis:
Post Op Day:
Patient Diagnosis:
Post Op Day:
Patient Diagnosis:pyelonephritis in pt with jj stent and bladder cancer with obstructed ureter now hematuria in eliquis with a stent and bladder cancer
Post Op Day:
Subjective
-
hematuria stopped
Objective
-
Vital Signs
Temp Pulse Resp BP Pulse Ox
98.2 F 78 16 146/65 99
04/11/24 07:35 04/11/24 09:37 04/11/24 09:37 04/10/24 23:23 04/11/24 07:35
Intake and Output
04/10/24 04/11/24 04/12/24
06:59 06:59 06:59
Intake Total 480 / 480 1680 / 1680
Output Total 450 / 450 200 / 200
Balance 30 / 30 1480 / 1480
Intake:
Oral fluids 480 / 480 1680 / 1680
Output:
Urine, Voided 450 / 450 200 / 200
Other:
Number of approximated SMALL 2
amounts of urine
Number of approximated MODERATE 3 5
amounts of urine
Laboratory Results
04/11/24 08:24
04/08/24 08:09
Review of Systems
-
: Urgency
Physical Exam
-
General - well developed, well nourished, no acute distress
Chest - clear bilaterally
Abdomen - soft, non-tender, positive bowel sounds, no CVAT, no incisional pain or distention
Genitalia - normal
Rectal - normal
Skin - warm & dry with no rash
Neuro - AOx3, no motor deficits
Extremities - no clubbing, no cyanosis, no edema
Incision - clean, dry
Dressing - clean, dry, intact
--- NOTE | 2024-04-11 10:18 | W.PN.HOSP.TC ---
Today's Communication/Plan
-
Discharge
Assessment / Plan
Assessment / Plan
Gen-AAOx3, NAD
HEENT-NC, AT, anicteric, clear oral mm
Neck-supple
CV-reg, no M, +S1/S2
Lungs-clear B/L
Abd-soft, NT, ND
Ext-RLE edema, tenderness
Musculoskeletal-no cyanosis, clubbing
Skin-warm and dry
Neuro-grossly non-focal
Psych-calm, cooperative
Gross hematuria -suspect due to underlying bladder cancer and/or stent in the setting of anticoagulation with Eliquis. Eliquis discontinued. IVC filter placed for PE prophylaxis. Hematuria resolved.
E. coli sepsis due to pyelonephritis -hemodynamically stable. Sepsis resolved. Tolerating cefdinir, discharge on cefdinir until April 20 as per ID.
Acute right lower extremity occlusive DVT -noted on ultrasound, involving right posterior tibial, peroneal, popliteal veins. Hold further anticoagulation in light of gross hematuria. IVC filter placed. Informed patient to speak with primary care
doctor regarding long-term use of the filter as ideally should come out as soon as possible. However, in light of her underlying malignancy she may need the filter long-term.
Bladder mass -pathology report pending, suspect underlying bladder cancer. Underwent cystoscopy and right ureteral stenting April 02. Right-sided hydronephrosis. Urology recommends not removing ureteral stent.
Microcytic anemia -appears chronic. Monitor for now. Hemoglobin stable.
DM2 without hyperglycemia -at home she is on insulin degludec 48 units at bedtime, Humalog insulin sliding scale, nateglinide 220 mg AC, Janumet 1 tab twice daily.
In the hospital she is getting Lantus 30 units at bedtime, NovoLog 10 units AC with sliding scale. Hold oral agents. Glucose 115 this morning.
Essential hypertension -stable.
Hyperlipidemia -atorvastatin.
Morbid obesity due to excess calories
Full code
Dispo -medically stable for discharge today. Outpatient follow-up with PCP and urology.
35 minutes spent in discharge process.
Anticipated Discharge: Today
Subjective/Interval History
-
Date of Service: April 11, 2024
Patient seen and examined. Requesting discharge. Feels fine. No complaints.
Objective Data
-
Labs:
Laboratory Results
04/11/24
08:24
WBC 8.5
Hgb 10.6 L
Hct 33.5 L
Plt Count 220
Vital Signs:
Vital Signs
Temp Pulse Resp BP Pulse Ox
98.2 F 78 16 146/65 99
04/11/24 07:35 04/11/24 09:37 04/11/24 09:37 04/10/24 23:23 04/11/24 07:35
I&O
04/10/24 04/11/24 04/12/24
06:59 06:59 06:59
Intake Total 480 / 480 1680 / 1680
Output Total 450 / 450 200 / 200
Balance 30 / 30 1480 / 1480
Review of Systems
-
History Source: Patient
All other systems: Reviewed and negative
--- NOTE | 2024-04-11 10:21 | W.DS.TRANS ---
DC Summary - Manager Of Compliance
-
Discharge Instructions:
Discharge Diagnosis/Procedures Sepsis, pyelonephritis, DVT, anemia, hematuria
Diet Diabetic, Carb Controlled
Activity As tolerated
Driving Restrictions As prior to admission
Bathing Restrictions None
Instructions:
Stand-Alone Forms:
Changes to Home Medications: No
Discharge Medications:
DC Medications w/original date entered in [facility]
insulin degludec 200 unit/mL (3 mL) subcutaneous pen (Tresiba FlexTouch U-200 insulin) 48 unit SQ HS Diabetes 03/27/17
atorvastatin 10 mg tablet 10 mg PO QPM High Cholesterol 04/13/17
gabapentin 100 mg capsule 100 mg PO BID 06/11/17
esomeprazole magnesium 20 mg capsule,delayed release (Nexium) 20 mg PO DAILY Gastrointestinal Issue 07/31/17
amlodipine 5 mg tablet 5 mg PO DAILY ##0 08/21/17
hydrochlorothiazide 25 mg tablet 25 mg PO DAILY ##0 08/21/17
azelastine 137 mcg (0.1 %) nasal spray 2 spray intranasal BID Allergies 10/20/21
coenzyme Q10 100 mg capsule (CoQ-10) 100 mg PO BID 10/20/21
montelukast 10 mg tablet (Singulair) 10 mg PO HS Lung/Breathing Issues 10/20/21
Fergon 1 tab PO DAILY 02/21/22
Women's Multivitamin Gummies 1 gummy PO DAILY 02/21/22
acetaminophen 500 mg tablet 1,000 mg PO Q6HPRN PRN mild pain 02/21/22
ascorbic acid (vitamin C) 500 mg tablet (Vitamin C) 500 mg PO DAILY Supplement 02/21/22
azelastine 0.05 % eye drops 1 drp BOTH EYES BIDPRN PRN allergy 02/21/22
colchicine 0.6 mg tablet 0.6 mg PO DAILYPRN PRN gout 02/21/22
elderberry fruit 350 mg capsule 350 mg PO DAILY 02/21/22
albuterol sulfate 90 mcg/actuation breath activated powder inhaler (ProAir RespiClick) 2 inh inhalation Q4H PRN wheezing 03/31/24
insulin lispro 100 unit/mL subcutaneous cartridge (Humalog U-100 Insulin) 10 - 12 sliding scale dose SC AC Diabetes 03/31/24
iklepniu-udzxtnaj-wmd C 250 mg-herbal no.124 8.875 mg chewable tablet (Airborne Immune Support) 1 tab PO DAILY 03/31/24
sitagliptin phosphate 50 mg-metformin 1,000 mg tablet (Janumet) 1 tab PO BID Diabetes 03/31/24
vibegron 75 mg tablet (Gemtesa) 75 mg PO DAILY Urinary Issue 03/31/24
Prevagen Es 1 cap PO DAILY 04/03/24
benzonatate 100 mg capsule 100 mg PO TIDPRN PRN cough 04/03/24
ipratropium bromide 21 mcg (0.03 %) nasal spray 1 spray intranasal BID Lung/Breathing Issues 04/03/24
levocetirizine 5 mg tablet (Xyzal) 5 mg PO DAILYPRN PRN seasonal allergies 04/03/24
trazodone 50 mg tablet 50 mg PO HSPRN PRN cough 04/03/24
fluticasone fur. 200 mcg-umeclid 62.5 mcg-vilant 25 mcg inhalat.powder (Trelegy Ellipta) 1 inh inhalation R DAILY Lung/Breathing Issues 04/07/24
nateglinide 120 mg tablet 120 mg PO AC Diabetes 04/07/24
perindopril erbumine 4 mg tablet 4 mg PO DAILY Heart Disease/Condition 04/07/24
phenazopyridine 95 mg tablet 95 mg PO TID Urinary Issue 04/07/24
cefdinir 300 mg capsule 300 mg PO Q12 #19 caps 04/10/24
Home Medication Changes
Pending Results: No
[2024-04-11 10:22] VITALS: BP 149/84
--- NOTE | 2024-04-11 11:02 | W.PN.ID1 ---
Date of Service
Date of Service: April 11, 2024
Today's Communication
tolerating cefdinir to complete a 14 day total course 04/07-04/20
Assessment / Plan
E coli UTI
E coli Bacteremia
TURB and stent placement 04/03
Report of allergy (hives and cough) to most classes of antibiotics
Xerosis
- tolerating cefdinir to complete a 14 day total course 04/07-04/20
- preemptive treatment of xerosis with lotion to prevent confusion if she develops itching from that; she is agreeable
- follow up with urology
Chief Complaint
-: UTI
Subjective / Review of Systems
afebrile
bp stable
tolerating current rx
discussed repeat ct scan with dr greenberg, he tells me he reviewed with dr de la garza this AM and that Dr de la garza felt that it would not document management specialist.
some particularly dry skin on the hand hand, she will use lotion
Vital Signs / Physical Exam
Vital Signs
Vital Signs
Temp Pulse Resp BP Pulse Ox
98.4 F 71 20 149/84 95
04/11/24 10:22 04/11/24 10:22 04/11/24 10:22 04/11/24 10:22 04/11/24 10:22
Physical Exam
Constitutional: No Acute Distress
Cardiovascular: Regular Rate and S1/S2; Negative Murmur or Rub
Pulmonary: Clear and Symmetric; Negative Wheezes or Rales
Gastrointestinal: Soft, Non Tender, Non Distended and Normal Bowel Sounds
Skin: Warm, Dry and Other (xerosis, with dry/cracked skin particularly on the L hand); Negative Rash or Jaundice
Objective Data
Lab Data
Lab Results
04/11/24 08:24
04/08/24 08:09
APTT Cancelled 04/09/24 14:45
Estimated Creat Clear 83 ml/min 04/08/24 08:09
Lactic Acid 1.1 mmol/L (0.7-2.0) 04/07/24 20:07
Total Bilirubin 1.1 mg/dl (0.2-1.3) 04/07/24 15:11
AST 64 U/L (14-36) H 04/07/24 15:11
ALT 26 U/L (0-35) 04/07/24 15:11
Alkaline Phosphatase 182 U/L (38-126) H 04/07/24 15:11
Most recent labs reviewed.
Micro Results:
04/10/24 12:59 C. difficile GDH Antigen & Toxins - Final
Feces/Stool Negative for toxigenic C.difficile
04/07/24 16:54 Blood Culture - Preliminary
Blood/Venous Escherichia coli
Gram Stain - Preliminary
04/07/24 15:11 Blood Culture - Final
Blood/Venous Escherichia coli
Gram Stain - Final
04/07/24 19:05 Urine Culture - Final
Urine Escherichia coli
Care Review
Plan reviewed with: Physician (Dr Greenberg - ct scan, antibiotics)
--- NOTE | 2024-04-11 11:04 | CM ---
CM met with Lashanda and her prior to discharge today. Plan for discharge to [facility] Independent apartment with referral to [facility].
IMM reviewed, signed copy placed in chart. Pt provided with a copy of the IMM.
Pt's will provide transport home.
Plan: Discharge to home with [facility].
[facility]
== END 2024-04-11 11:55 | disposition home health service (06) | DRG 872 ==
LOC: 4 EAST ACU 22:51
PROVIDERS: Emergency Medicine; Radiology Vascular & Interventional Radiology; ADMITTING PHYSICIAN Internal Medicine; ATTENDING PHYSICIAN Hospitalist; CONSULT PHYSICIAN Specialist; CONSULT PHYSICIAN Student in an Organized Health Care Education/Training Program; EMERGENCY PHYSICIAN Student in an Organized Health Care Education/Training Program; FAMILY PHYSICIAN Family Medicine
PROC: 06H03DZ Insertion of Intraluminal Device into Inferior Vena Cava, Percutaneous Approach (ICD-10-PCS; 2024-04-10)
DX: A41.51 Sepsis due to Escherichia coli [E. coli] (principal); I82.441 Acute embolism and thrombosis of right tibial vein; I82.431 Acute embolism and thrombosis of right popliteal vein; I82.451 Acute embolism and thrombosis of right peroneal vein; N13.6 Pyonephrosis; C79.51 Secondary malignant neoplasm of bone; D68.32 Hemorrhagic disorder due to extrinsic circulating anticoagulants; Z68.41 Body mass index [BMI] 40.0-44.9, adult; I10 Essential (primary) hypertension; Z96.653 Presence of artificial knee joint, bilateral; J45.909 Unspecified asthma, uncomplicated; C67.9 Malignant neoplasm of bladder, unspecified; E78.00 Pure hypercholesterolemia, unspecified; E11.9 Type 2 diabetes mellitus without complications; E66.813 Obesity, class 3; D63.0 Anemia in neoplastic disease; R31.0 Gross hematuria; K59.00 Constipation, unspecified; K21.9 Gastro-esophageal reflux disease without esophagitis; T45.515A Adverse effect of anticoagulants, initial encounter; Z96.0 Presence of urogenital implants; Z88.2 Allergy status to sulfonamides; Z88.5 Allergy status to narcotic agent; Z79.4 Long term (current) use of insulin; Z79.84 Long term (current) use of oral hypoglycemic drugs; Z79.899 Other long term (current) drug therapy; Z88.0 Allergy status to penicillin; Z88.1 Allergy status to other antibiotic agents
CPT/HCPCS: 37191; 51798; 71275; 74177; 80048; 80053; 81003; 81015; 82962; 83605; 83880; 85025; 85027; 85730; 87040; 87077; 87086; 87149; 87186; 87205; 87324; 87449; 93971; 94640; 96361; 96374; 96375; 99291; C1769; C1880; J2185; Q9967

== ENCOUNTER → 2024-04-23 08:41 | Outpatient (REF) | payer OTHER, SELFPAY | LOC: HWWDC 08:41 | PROVIDERS: ATTENDING PHYSICIAN Family Medicine; FAMILY PHYSICIAN Internal Medicine | DX: Z12.31 Encounter for screening mammogram for malignant neoplasm of breast (principal) | CPT/HCPCS: 77063; 77067 ==

== ENCOUNTER → 2024-04-25 10:44 | Outpatient (REF) | payer OTHER, SELFPAY | LOC: WDC 10:44 | PROVIDERS: ATTENDING PHYSICIAN Family Medicine; FAMILY PHYSICIAN Internal Medicine | DX: R92.8 Other abnormal and inconclusive findings on diagnostic imaging of breast (principal) | CPT/HCPCS: 76642 ==

== ENCOUNTER → 2024-04-30 08:49 | Outpatient (REF) | payer OTHER, SELFPAY ==
--- NOTE | 2024-04-30 15:06 | OID.BR.INTR ---
[facility] Breast Navigator - Initial
- -
Date of Contact: 04/30/24
Met with patient. Patient with already confirmed breast cancer metastasis results from bladder biopsy done 04/03/24. She was informed of results previously. She has medical oncology consult at [facility] 05/01/24.
== END ==
LOC: WDC 08:49
PROVIDERS: ATTENDING PHYSICIAN Family Medicine
DX: N63.21 Unspecified lump in the left breast, upper outer quadrant (principal)
CPT/HCPCS: 88305; 19083; 88341; 88342; 88360; A4648

== ENCOUNTER → 2024-11-05 07:56 | Outpatient (REF) | payer OTHER, SELFPAY | LOC: RAD 07:56 | PROVIDERS: ATTENDING PHYSICIAN Internal Medicine; OTHER PHYSICIAN Internal Medicine Hematology & Oncology | DX: Z13.820 Encounter for screening for osteoporosis (principal); C79.51 Secondary malignant neoplasm of bone; Z78.0 Asymptomatic menopausal state | CPT/HCPCS: 77080 ==

== ENCOUNTER 2025-02-27 06:07 | Day surgery (SDC) | payer OTHER, SELFPAY ==
[2025-02-27 10:25] LABS: Glucose - Point of Care 143 mg/dl (70-99)
[2025-02-27 10:41] VITALS: BMI 34.3
[2025-02-27 10:42] VITALS: BP 167/83
[2025-02-27 11:49] VITALS: BP 138/71
[2025-02-27 11:56] VITALS: BP 154/69
[2025-02-27 12:00] VITALS: BP 136/65
[2025-02-27 12:15] VITALS: BP 138/77
== END 2025-02-27 12:30 | disposition home or self-care (01) ==
LOC: SDS 06:07
PROVIDERS: ATTENDING PHYSICIAN Internal Medicine Gastroenterology
DX: Z12.11 Encounter for screening for malignant neoplasm of colon (principal); R11.0 Nausea; K44.9 Diaphragmatic hernia without obstruction or gangrene; K29.70 Gastritis, unspecified, without bleeding; K29.80 Duodenitis without bleeding; Q43.8 Other specified congenital malformations of intestine; K64.8 Other hemorrhoids; K22.70 Barrett's esophagus without dysplasia; Z86.0100 Personal history of colon polyps, unspecified
CPT/HCPCS: 43239; G0105; 82962; 88305